=== PATIENT | female | born 1955 | race Caucasian/White ===

== ENCOUNTER 2018-04-16 10:38 | Day surgery (SDC) | payer OTHER ==
[~2018-04-16] VITALS: Ht 165.1 cm; Wt 96.6 kg
[~2018-04-16 10:38] MED LIST: BUPR300T3 PO; CETI10TA16 PO; DULO60CA6 PO; HYDROmorphone 2 MG/ML VIAL IV PRN; IV RINGERS,LACTATED 1000ML 1,000 ML IV SCH; LEVO88TA4 PO; LIDOCAINE 1% PF 2 ML VIAL. ID PRN; MELO15TA23 PO; MORPHINE SULFATE 2 MG/ML VIAL. IV PRN; OMEP40CA5 PO; ONDANSETRON PF 4 MG/2 ML VIAL. IV PRN; PROCHLORPERAZINE 10 MG/2 ML VIAL. IV PRN; fentaNYL PF VIAL 100 MCG/2 ML VIAL IV PRN
[2018-04-16] MEDS ORDERED: BUPIVACAINE MPF 0.5% 30 ML VIAL. ONE ×2 (11:36→12:59)
[2018-04-16] MEDS ORDERED: DEXAMETHASONE SOD PHOS 4 MG/ML VIAL ONE (11:36)
[2018-04-16] MEDS ORDERED: POVIDONE-IODINE 10% TOPICAL OINTMENT 28GM TUBE. TP ONE (11:36)
[2018-04-16] MEDS ORDERED: LIDOCAINE 1% PF 30 ML VIAL. ONE (11:36)
[2018-04-16] MEDS ORDERED: MIDAZOLAM HCL/PF 2 MG/2 ML VIAL. ONE (12:41)
[2018-04-16] MEDS ORDERED: DEXAMETHASONE SOD PHOS 20 MG/5 ML VIAL. ONE (12:41)
[2018-04-16] MEDS ORDERED: PROPOFOL 20 ML IV ONE (12:41)
[2018-04-16] MEDS ORDERED: ONDANSETRON PF 4 MG/2 ML VIAL. ONE (12:41)
[2018-04-16] MEDS ORDERED: LIDOCAINE 2% PF Vial for OR 5 ML VIAL. ONE (12:41)
[2018-04-16] MEDS ORDERED: fentaNYL PF VIAL 100 MCG/2 ML VIAL ONE (12:41)
[2018-04-16] MEDS ORDERED: FAMOTIDINE 20 MG/2 ML VIAL ONE (12:44)
[2018-04-16 12:45] LABS: BASO # 0.1 x10^3/uL (0.0-0.2); BASO % 1 % (0-3); EOS # 0.3 x10^3/uL (0.0-0.7); EOS % 3 % (0-3); HEMATOCRIT 37.6 % (36.0-47.0); HEMOGLOBIN 12.3 g/dL (12.0-15.5); LYMPH % 29 % (24-48); MEAN CORPUSCULAR HEMOGLOBIN 28 pg (25-35); MEAN CORPUSCULAR HGB CONC 33 g/dL (31-37); MEAN CORPUSCULAR VOLUME 87 fL (79-100); MONO # 0.5 x10^3/uL (0.0-1.1); MONO % 5 % (0-9); NEUT # 6.5 x10^3uL (1.8-7.7); NEUT % 63 % (31-73); PLATELET COUNT 257 x10^3/uL (140-400); RED BLOOD COUNT 4.34 x10^6/uL (3.50-5.40); RED CELL DISTRIBUTION WIDTH 15.2 % (11.5-14.5); WHITE BLOOD COUNT 10.3 x10^3/uL (4.0-11.0)
[2018-04-16 12:52] LABS: CALCIUM 9.4 mg/dL (8.5-10.1); POTASSIUM 4.3 mmol/L (3.5-5.1)
[2018-04-16 12:58] LABS: ALBUMIN 3.2 g/dL (3.4-5.0); ALBUMIN/GLOBULIN RATIO 0.8 (1.0-1.7); TOTAL BILIRUBIN 0.2 mg/dL (0.2-1.0); TOTAL PROTEIN 7.2 g/dL (6.4-8.2)
[2018-04-16] MEDS ORDERED: PHENYLEPHRINE in 0.9% NACL PF 1 MG/10 ML SYRINGE. IV ONE (13:10)
[2018-04-16] MEDS ORDERED: SEVOFLURANE > 120 MINUTES. IH ONE (14:40)
--- NOTE | 2018-04-16 14:57 | PDOC4 ---
OPERATIVE NOTE: Surgeon: Zachary Pre operative diagnosis: hammer toe 2nd and 5th digit bilateral with contracture right 2nd MPJ Post operative diagnosis: same Procedure: Arthroplasty bilateral 5th toes, arthrodesis bilateral 2nd digit with Bhakta Phalinx implant, extensor tenotomy and capsulotomy Anesthesia: LMA with local Hemostasis : ankle tourniquet bilateral EBL: less than 1 mL Materials Bhakta Phalinx medium 2nd toe bilateral Intraoperative findings: consistent with diagnosis. VLAD YOON DPM Apr 16, 2018 14:56
[2018-04-16] MEDS ORDERED: OXYC-323 PO (15:39)
[2018-04-16 15:45] VITALS: BP 115/69
[2018-04-16] MEDS ORDERED: oxyCODONE/APAP 5/325 1 TAB TABLET PO ONE (15:45)
--- NOTE | 2018-04-16 16:18 | RAD ---
Bilateral feet, 04/16/2018: HISTORY: Postop surgery for hammer toes There are surgical screws traversing the second PIP joints bilaterally. Alignment in those regions appears anatomic. There has been previous surgical resections at the PIP joints of the little toes bilaterally. Moderate degenerative changes are present at the interphalangeal joints of the middle toes bilaterally. There is mild degenerative change at the midfoot levels bilaterally. IMPRESSION: Postsurgical and degenerative changes as described above.. Electronically signed by: Hermelindo Abebe MD (04/16/2018 4:15 PM) [facility]
--- NOTE | 2018-04-16 18:06 | OP ---
DATE OF SURGERY: 04/16/2018 PREOPERATIVE DIAGNOSES: Hammer digit syndrome of the second and fifth toes bilateral foot with contracture at the second metatarsophalangeal joint of the right foot. POSTOPERATIVE DIAGNOSES: Hammer digit syndrome of the second and fifth toes bilateral foot with contracture at the second metatarsophalangeal joint of the right foot. PROCEDURE: Revisional arthroplasty, bilateral fifth toes as well as arthrodesis, bilateral second digits with right phalanx implant as well as extensor tenotomy and capsulotomy at the second metatarsophalangeal joint of the right foot. SURGEON: Elijah Sharma DPM ANESTHESIA: LMA with local. HEMOSTASIS: Bilateral ankle tourniquet at 250 mmHg. INDICATIONS: The patient is a 62-year-old female who complains of pain in shoe gear to the second and fifth toes. She has failed conservative treatment of accommodative padding and extra depth shoe gear and NSAIDs. She had previous arthroplasties of the 5th toes bilateral, but continues to note pain in shoes. Discussed with patient the possible benefits, risks and complications to include delayed healing, nonhealing, need for further surgery, loss of toe purchase, floppy toe, flail toe, delayed healing, nonhealing, delayed union or nonunion of the arthrodesis, pseudoarthrosis, swelling, numbness, loss of toe foot, limb or life, infection, blood clots to the leg, blood clot to the lung, DVT and pulmonary embolism, chronic regional pain syndrome. All questions were answered. No guarantees made. The patient signed consent freely and put in chart. DESCRIPTION OF PROCEDURE: The patient was transported to the operating room via a cart and placed on the operating table in supine position. She was given IV Ancef preoperatively. A well-padded tourniquet was placed over bilateral ankles and a second digit and fifth digit blocks were given consisting of a 1:1 mixture of 1% lidocaine plain and 0.5% Marcaine plain. The bilateral foot were then prepped and draped in the usual aseptic manner. Attention was directed to the right foot first, an Esmarch bandage was used to exsanguinate the right foot. The right ankle tourniquet was inflated to 250 mmHg. Attention was directed to the second and fifth toes. A linear incision was made over the second proximal interphalangeal joint, 2 cm in length and this was deepened to the level of the extensor tendons. Small vessels were cauterized and removed from the incision line and transected the extensor tendon at the proximal interphalangeal joint and then next the medial and lateral collateral ligaments were also resected. Sagittal saw was used to resect the head of the proximal phalanx as well as the base of the middle phalanx. Next, a K-wire was retrograded through the middle and distal phalanx and using the right phalanx implant size medium. This was then placed into the proximal interphalangeal joint and noted solid fixation and approximation of the proximal interphalangeal joint was satisfactory. K-wire was forwarded through and then the K-wire was removed. X-ray confirmed satisfactory alignment on C-arm fluoroscopy. The wound was copiously irrigated with sterile saline and the tendon was reapproximated with 3-0 Vicryl and the skin was reapproximated with 4-0 nylon. Next, attention was directed to the fifth digit where two semielliptical incisions were made distal medial to proximal lateral and noted the proximal interphalangeal joint and transected to the extensor tendon. Next resected with sagittal saw, the fifth metatarsal head and I used a bone rasp to remove any sharp edges and then the wound was copiously irrigated with sterile saline and the tendon was reapproximated with 3-0 Vicryl and the skin was reapproximated with 4-0 nylon. Satisfactory alignment was noted of both second and fifth digits with C-arm fluoroscopy. Applied postop injection of 0.5% Marcaine plain, 4 mL to the toes. It was noted that the second digit was still sagittally contracted at the metatarsophalangeal joint. A 1 cm incision was made at the level of the second metatarsophalangeal joint on the right foot and this was deepened to the level of the extensor tendon and capsule, transected the extensor tendons as well as the capsule release to allow for the toe to be in line with the plane of the other toes. Satisfactory alignment was noted. The wound was copiously irrigated with sterile saline and next the skin was reapproximated with 4-0 nylon. Applied Betadine ointment to all incisions with Adaptic gauze, 4 x 4s, Kerlix and an Mike bandage. The tourniquet was deflated and good perfusion was noted to all digits of the right foot. Next, attention was directed to the left foot. Esmarch bandage was used to exsanguinate the left foot now and the left foot ankle tourniquet was then turned on. Attention was directed to the second digit and a 2 cm incision was made over the proximal interphalangeal joint. Extensor tendon was transected at the proximal interphalangeal joint. Small vessels were removed from the joint and the extensor tendon was transected as well as the medial and lateral collateral ligaments. Next, a sagittal saw was used to resect the head of the proximal phalanx as well as the base of the middle phalanx and a K-wire was used to retrograde through the middle and distal phalanx to the level of a marker on the Bhakta Phalinx Implant System and the medium sized Bhakta Phalinx Implant System was then implanted to the proximal phalangeal joint. Solid fixation was achieved and noted satisfactory alignment and C-arm fluoroscopy was utilized to show proper alignment. The K-wire was then removed and the extensor tendon was reapproximated with 3-0 Vicryl and the skin with 4-0 nylon. Next, attention was directed to the fifth digit of the left foot and again two converging semielliptical incisions were made over the proximal interphalangeal joint, distal medial to lateral proximal. The skin was removed and then transected through the proximal interphalangeal joint extensor tendon and released the medial and lateral collateral ligaments and then used a sagittal saw to resect the remaining head of the proximal phalanx. Wound was copiously irrigated with sterile saline. The extensor tendon was reapproximated with 3-0 Vicryl and the skin was reapproximated with 4-0 nylon. Next, the postop injection was given with 5 mL of 0.5% Marcaine plain and the wounds were dressed with Betadine ointment, Adaptic gauze, 4 x 4s, Kerlix bandage, and an Mike bandage. Tourniquet was deflated. Good perfusion was noted to all digits of the left foot. The patient tolerated both anesthesia and procedure well, and she was transported to the PACU in stable condition with vital signs stable. She is to be minimal weightbearing in a surgical shoe and postop injections were in the chart. ELIJAH SHARMA DPM DR: Carmelita JOB#: [id number] / [id number]
== END 2018-04-16 16:47 | disposition home or self-care (01) ==
LOC: SURG 10:38
PROVIDERS: ATTEND Podiatrist Foot & Ankle Surgery
DX: M20.41 Other hammer toe(s) (acquired), right foot (principal); M20.42 Other hammer toe(s) (acquired), left foot; M24.574 Contracture, right foot; K21.9 Gastro-esophageal reflux disease without esophagitis; Z90.710 Acquired absence of both cervix and uterus; Z90.49 Acquired absence of other specified parts of digestive tract; Z98.890 Other specified postprocedural states; Z87.39 Personal history of other diseases of the musculoskeletal system and connective tissue; Z96.651 Presence of right artificial knee joint; E03.9 Hypothyroidism, unspecified; F32.9 Major depressive disorder, single episode, unspecified; F41.9 Anxiety disorder, unspecified; Z72.89 Other problems related to lifestyle
CPT/HCPCS: 28285; 36415; 73630; 80053; 85025; A7015; C1713; J0690; J1100; J2001; J2250; J2370; J2405; J2704; J3010; J3490; J7120